=== PATIENT | female | born 1945 | race Caucasian/White ===

== ENCOUNTER 2021-12-14 14:41 | Inpatient (IN) ==
[2021-12-14 15:48] LABS: Basophils % 0.4 %; Eosinophils # 0.3 K/mcL (0.0-0.6); Eosinophils % 4.5 %; Hematocrit 41.5 % (35.3-44.9); Hemoglobin 13.2 g/dL (11.5-15.4); Immature Granulocytes % 0.3 % (0-4); Lymphocytes # 1.6 K/mcL (0.6-4.6); Lymphocytes % 22.4 %; Mean Corpuscular HGB Conc 31.8 g/dL (31.6-35.5); Mean Corpuscular Hemoglobin 28.8 pg (28.0-33.3); Mean Corpuscular Volume 90.6 fL (83.0-100.0); Mean Platelet Volume 10.6 fL (9.4-12.4); Monocytes # 0.3 K/mcL (0.0-1.3); Monocytes % 4.6 %; Neutrophils # 4.8 K/mcL (1.6-8.9); Platelet Count 223 K/mcL (140-400); Red Blood Count 4.58 M/mcL (3.82-4.97); Red Cell Distribution Width 14.1 % (11.5-14.5); Segmented Neutrophils % 67.8 %; White Blood Count 7.1 K/mcL (4.3-11.1)
[2021-12-14 16:07] LABS: BUN/Creatinine Ratio 18 (6-26); Blood Urea Nitrogen 19 mg/dL (8-23); Calcium 9.4 mg/dL (8.6-10.3); Carbon Dioxide 28 mEq/L (23-29); Chloride 102 mEq/L (98-107); Glucose 194 mg/dL (70-105); Osmolality,Calculated 292 (280-300); Potassium 3.9 mEq/L (3.5-5.1); Sodium 137 mEq/L (136-145)
[2021-12-14 21:03] LABS: Magnesium 1.8 mg/dL (1.6-2.6); Phosphorous 4.2 mg/dL (2.7-4.5); Troponin I < 0.03 ng/mL (< 0.04)
[2021-12-14 21:18] LABS: Thyroid Stimulating Hormone 0.886 mcIU/mL (0.340-5.600)
[2021-12-14 22:46] LABS: Amorphous Sediment,Urine Few per hpf (None-Few); Bilirubin,Urine Negative (Negative); Blood,Urine Negative (Negative); Clarity,Urine Clear (Clear); Color,Urine Light-Yellow (Yellow); Glucose,Urine (UA) >=1000 mg/dL (Normal); Ketones,Urine Negative (Negative); Leukocyte Esterase,Urine Negative (Negative); Mucus,Urine Few per lpf (None-Few); Nitrite,Urine Negative (Negative); Protein,Urine Negative (Neg-Trace); RBC,Urine 0-3 per hpf (0-3); Specific Gravity,Urine 1.015 (1.010-1.025); Squamous Epithelial Cell,Urine Few per hpf (None-Few); Urobilinogen,Urine Normal (Normal); WBC,Urine 0-3 per hpf (0-3)
[2021-12-15] MEDS ORDERED: Naloxone 0.4 MG/ML INJ IVP PRN (01:57)
[2021-12-15] MEDS ORDERED: Ondansetron 4 MG/2 ML VIAL IVP PRN (01:57)
[2021-12-15] MEDS ORDERED: Acetaminophen 325 MG TABLET PO PRN (03:42)
[2021-12-15] MEDS ORDERED: Dextrose Gel 15 GM/37.5 ML TUBE PO PRN ×2 (03:44)
[2021-12-15] MEDS ORDERED: D5% in Water 1,000 ML IVC PRN (03:44)
[2021-12-15] MEDS ORDERED: *HR* Dextrose 50 % in Water (Syg) 50 ML SYRINGE IVP PRN (03:44)
[2021-12-15 03:45] LABS: Basophils % 0.4 %; Eosinophils # 0.4 K/mcL (0.0-0.6); Eosinophils % 4.6 %; Hemoglobin 12.6 g/dL (11.5-15.4); Immature Granulocytes % 0.3 % (0-4); Lymphocytes # 2.7 K/mcL (0.6-4.6); Lymphocytes % 29.5 %; Mean Corpuscular HGB Conc 32.3 g/dL (31.6-35.5); Mean Corpuscular Hemoglobin 29.2 pg (28.0-33.3); Mean Corpuscular Volume 90.3 fL (83.0-100.0); Mean Platelet Volume 10.4 fL (9.4-12.4); Monocytes # 0.6 K/mcL (0.0-1.3); Neutrophils # 5.3 K/mcL (1.6-8.9); Platelet Count 191 K/mcL (140-400); Red Blood Count 4.32 M/mcL (3.82-4.97); Segmented Neutrophils % 58.2 %; White Blood Count 9.1 K/mcL (4.3-11.1)
[2021-12-15 03:53] LABS: INR 1.2; Prothrombin Time 13.1 Seconds (9.4-12.1)
[2021-12-15 04:08] LABS: BUN/Creatinine Ratio 21 (6-26); Blood Urea Nitrogen 21 mg/dL (8-23); Calcium 9.3 mg/dL (8.6-10.3); Carbon Dioxide 28 mEq/L (23-29); Chloride 101 mEq/L (98-107); Chol/HDL Ratio 2.2 (0-4.9); Cholesterol 110 mg/dL (< 200); Glucose 118 mg/dL (70-105); HDL Cholesterol 51 mg/dL (40-59); LDL Cholesterol,Calculated 27 mg/dL (< 100); Magnesium 1.7 mg/dL (1.6-2.6); Osmolality,Calculated 290 (280-300); Phosphorous 4.2 mg/dL (2.7-4.5); Potassium 3.5 mEq/L (3.5-5.1); Sodium 138 mEq/L (136-145); Triglycerides 161 mg/dL (< 150); Troponin I < 0.03 ng/mL (< 0.04)
[2021-12-15] MEDS ORDERED: Melatonin 3 MG TABLET PO PRN (05:00)
[2021-12-15 05:09] LABS: Influenza A PCR Negative (Negative); Influenza B PCR Negative (Negative); Resp. Syncytial Virus PCR Negative (Negative)
[2021-12-15 05:10] LABS: SARS-CoV-2 by PCR (In House) Negative (Negative)
[2021-12-15] MEDS: Insulin LISPRO 300 UNITS/3 ML VIAL SUBQ SCH ×5 (05:16→21:47)
[2021-12-15] MEDS: Metoprolol XL (24 HR) Succ 50 MG TAB.ER.24H PO SCH (08:49)
[2021-12-15] MEDS: hydroCHLOROthiazide 25 MG TABLET PO SCH (08:49)
[2021-12-15] MEDS ORDERED: amLODIPine 5 MG TABLET PO SCH (09:00)
[2021-12-15 11:06] LABS: Estimated Average Glucose 186 mg/dl; Hemoglobin A1C 8.1 %
[2021-12-15 11:24] LABS: % Iron Saturation 14 % (15-50); Iron 47 mcg/dL (50-170); Transferrin 239 mg/dL (203-362)
[2021-12-15 11:39] LABS: Ferritin 135 ng/mL (10-120)
[2021-12-15 11:45] LABS: Folate 14.7 ng/mL (3.0-16.0)
[2021-12-15] MEDS: rOPINIRole 0.25 MG TABLET PO SCH (21:44)
[2021-12-16] MEDS: Insulin LISPRO 300 UNITS/3 ML VIAL SUBQ SCH ×4 (07:41→20:34)
[2021-12-16] MEDS: hydroCHLOROthiazide 25 MG TABLET PO SCH (08:31)
[2021-12-16] MEDS: Metoprolol XL (24 HR) Succ 50 MG TAB.ER.24H PO SCH (08:32)
[2021-12-16] MEDS: rOPINIRole 0.25 MG TABLET PO SCH (20:34)
[2021-12-17] MEDS: Insulin LISPRO 300 UNITS/3 ML VIAL SUBQ SCH ×4 (06:57→21:55)
[2021-12-17] MEDS: Metoprolol XL (24 HR) Succ 50 MG TAB.ER.24H PO SCH (07:24)
[2021-12-17] MEDS: hydroCHLOROthiazide 25 MG TABLET PO SCH (07:25)
[2021-12-17] MEDS ORDERED: *HR* FentaNYL (PF) 100 MCG/2 ML VIAL ONE (13:26)
[2021-12-17] MEDS ORDERED: *HR* Midazolam HCl 2 MG/2 ML VIAL ONE (13:26)
[2021-12-17] MEDS ORDERED: Nitroglycerin 1,000 MCG/5 ML VIAL IV ONE (13:27)
[2021-12-17] MEDS ORDERED: *HR* Heparin 10,000 UNIT/10 ML VIAL ONE ×2 (13:27→13:55)
[2021-12-17] MEDS ORDERED: Heparin 1,000 UNITS/500 mL 500 ML ONE (13:27)
[2021-12-17] MEDS ORDERED: Iopamidol - 370 200 ML INFUS..BTL ONE (13:27)
[2021-12-17] MEDS ORDERED: 0.9 % Sodium Chloride 1,000 ML ONE (13:27)
[2021-12-17] MEDS ORDERED: Iopamidol - 370 500 ML MLS IVP ONE (13:58)
[2021-12-17] MEDS: rOPINIRole 0.25 MG TABLET PO SCH (20:04)
[2021-12-18] MEDS: hydroCHLOROthiazide 25 MG TABLET PO SCH (07:39)
[2021-12-18] MEDS: Metoprolol XL (24 HR) Succ 50 MG TAB.ER.24H PO SCH (07:39)
[2021-12-18] MEDS: Insulin LISPRO 300 UNITS/3 ML VIAL SUBQ SCH ×4 (07:40→20:55)
[2021-12-18] MEDS: Aspirin Enteric Coated 81 MG Tablet PO SCH (08:39)
[2021-12-18] MEDS: rOPINIRole 0.25 MG TABLET PO SCH (20:55)
[2021-12-19 07:41] VITALS: BP 124/72; PULSE 68; TEMP 97.7; O2SAT 94
[2021-12-19] MEDS: Insulin LISPRO 300 UNITS/3 ML VIAL SUBQ SCH ×2 (08:11→11:55)
[2021-12-19] MEDS: hydroCHLOROthiazide 25 MG TABLET PO SCH (08:12)
[2021-12-19] MEDS: Aspirin Enteric Coated 81 MG Tablet PO SCH (08:12)
[2021-12-19] MEDS ORDERED: Metoprolol XL (24 HR) Succ 50 MG TAB.ER.24H PO SCH ×2 (09:00)
== END 2021-12-19 12:10 | disposition home or self-care (01) | DRG 247 ==
LOC: EMEROOARM 14:41 → 3BNU 14:41 → SUATTDRO 12-15 01:53 → 3BNU 12-15 02:21 → SUATTDRO 12-18 19:32
PROVIDERS: ADMIT Internal Medicine; ATTEND Registered Nurse

== ENCOUNTER 2022-01-08 06:33 | Inpatient (IN) ==
[~2022-01-08 06:33] MED LIST: CeFAZolin Syr 2,000MG/20 ML 2,000 MG/20 ML SYRINGE IVPB ONE; NiCARdipine 2.5 MG/10 ML Syringe IVPB ONE
[2022-01-08] MEDS ORDERED: Protamine Sulfate 50 MG/5 ML VIAL IVP ONE (07:07)
[2022-01-08] MEDS ORDERED: 0.9 % Sodium Chloride 1,000 ML ONE ×2 (07:08→07:09)
[2022-01-08] MEDS ORDERED: *HR* Heparin 10,000 UNIT/10 ML VIAL ONE (07:08)
[2022-01-08] MEDS ORDERED: Heparin 1,000 UNITS/500 mL 1,500 ML ONE (07:08)
[2022-01-08] MEDS ORDERED: Iopamidol - 370 200 ML INFUS..BTL ONE (07:11)
[2022-01-08] MEDS ORDERED: Ondansetron 4 MG/2 ML VIAL IVP PRN (07:12)
[2022-01-08] MEDS ORDERED: Albuterol 2.5 MG/3 ML NEBULIZER IH PRN (07:12)
[2022-01-08] MEDS ORDERED: *HR* Metoprolol 5 MG/5 ML VIAL IVP PRN (07:12)
[2022-01-08] MEDS ORDERED: *HR* FentaNYL (PF) 100 MCG/2 ML VIAL IVP PRN (07:12)
[2022-01-08] MEDS ORDERED: Acetaminophen IV 1,000 MG/100 ML BAG IVPB PRN (07:12)
[2022-01-08] MEDS ORDERED: Vancomycin 1,000 MG VIAL ONE (07:15)
[2022-01-08] MEDS ORDERED: D5% in Water 100 ML ONE (07:16)
[2022-01-08] MEDS ORDERED: 0.9 % Sodium Chloride 2,000 ML ONE (07:16)
[2022-01-08] MEDS ORDERED: 0.9 % Sodium Chloride 250 ML ONE (07:16)
[2022-01-08] MEDS ORDERED: *HR* FentaNYL (PF) 100 MCG/2 ML VIAL ONE (07:34)
[2022-01-08] MEDS ORDERED: *HR* Midazolam HCl 2 MG/2 ML VIAL ONE (07:34)
[2022-01-08] MEDS ORDERED: Heparin 15,000 UNIT in 0.9 % Sodium Chloride 500 ML IR ONE (07:45)
[2022-01-08] MEDS ORDERED: Norepinephrine 4 MG in 0.9 % Sodium Chloride 250 ML IVC PRN (07:45)
[2022-01-08] MEDS ORDERED: Buckersberg's Blood Cardioplegia PF ONE (08:00)
[2022-01-08] MEDS ORDERED: del Nido Cardioplegia Solution PF ONE ×2 (08:00)
[2022-01-08] MEDS ORDERED: Sennosides 8.6 MG TABLET PO PRN (09:33)
[2022-01-08] MEDS ORDERED: *HR* Promethazine 25 MG/ML VIAL IM PRN (09:33)
[2022-01-08] MEDS ORDERED: *HR* Dextrose 50 % in Water (Syg) 50 ML SYRINGE IVP PRN ×2 (09:33→10:45)
[2022-01-08] MEDS ORDERED: Ipratropium/Albuterol Neb 3 ML IH PRN (09:33)
[2022-01-08] MEDS ORDERED: Naloxone 0.4 MG/ML INJ IVP PRN (09:33)
[2022-01-08] MEDS ORDERED: Calcium Gluconate 1gm/50mL 1 GM/50 ML BAG IVPB PRN (09:33)
[2022-01-08] MEDS ORDERED: Albumin Human 5% 12.5 GM/250 ML IV.SOLN IVPB PRN (09:33)
[2022-01-08] MEDS ORDERED: Insulin Regular, Human 100 UNIT/ML IV PRN (09:33)
[2022-01-08] MEDS ORDERED: Potassium Chloride 40 MEQ/200 ML BAG IVPB PRN (09:33)
[2022-01-08] MEDS: niCARdipine 20 MG/200 ML MLS IVC SCH ×2 (10:06→20:19)
[2022-01-08] MEDS ORDERED: Dextrose Gel 15 GM/37.5 ML TUBE PO PRN ×2 (10:45)
[2022-01-08] MEDS ORDERED: D5% in Water 1,000 ML IVC PRN (10:45)
[2022-01-08] MEDS ORDERED: *HR* Phenylephrine 10 MG/ML VIAL IVC ONE (12:21)
[2022-01-08] MEDS ORDERED: Ondansetron 4 MG/2 ML VIAL IVP ONE (12:21)
[2022-01-08] MEDS ORDERED: *HR* Etomidate 20 MG/10 ML AMPUL IVP ONE (12:21)
[2022-01-08] MEDS ORDERED: *HR* Propofol 200 MG/20 ML VIAL IVP ONE (12:21)
[2022-01-08] MEDS ORDERED: *HR* Rocuronium Bromide 50 MG/5 ML VIAL IVP ONE (12:21)
[2022-01-08] MEDS ORDERED: Lidocaine -MPF 2% 5 ML VIAL SQ ONE (12:21)
[2022-01-08] MEDS ORDERED: *HR* HYDROcodone/Acet 5/325 mg TABLET PO PRN (17:03)
[2022-01-08] MEDS ORDERED: Melatonin 3 MG TABLET PO PRN (17:03)
[2022-01-08] MEDS: Chlorhexidine Rinse 15 ML MOUTHWASH MM SCH (20:07)
[2022-01-08] MEDS ORDERED: Furosemide 20 MG/2 ML VIAL IVP SCH (21:00)
[2022-01-08] MEDS ORDERED: rOPINIRole 0.25 MG TABLET PO SCH ×2 (21:00)
[2022-01-08] MEDS ORDERED: NON-FORMULARY MEDICATION 1 EACH EACH (Pantoprazole Sodium [Protonix] 40 MG Tablet.Dr) PO SCH (21:00)
[2022-01-09] MEDS: niCARdipine 20 MG/200 ML MLS IVC SCH ×2 (05:28→08:21)
[2022-01-09 06:47] LABS: Basophils % 0.3 %; Eosinophils # 0.1 K/mcL (0.0-0.6); Eosinophils % 0.4 %; Hematocrit 34.9 % (35.3-44.9); Hemoglobin 11.3 g/dL (11.5-15.4); Immature Granulocytes % 0.4 % (0-4); Lymphocytes # 1.8 K/mcL (0.6-4.6); Lymphocytes % 15.8 %; Mean Corpuscular HGB Conc 32.4 g/dL (31.6-35.5); Mean Corpuscular Hemoglobin 29.3 pg (28.0-33.3); Mean Corpuscular Volume 90.4 fL (83.0-100.0); Mean Platelet Volume 9.8 fL (9.4-12.4); Monocytes % 8.8 %; Neutrophils # 8.3 K/mcL (1.6-8.9); Platelet Count 167 K/mcL (140-400); Red Blood Count 3.86 M/mcL (3.82-4.97); Red Cell Distribution Width 14.9 % (11.5-14.5); Segmented Neutrophils % 74.3 %; White Blood Count 11.2 K/mcL (4.3-11.1)
[2022-01-09 06:58] LABS: INR 1.1; Prothrombin Time 12.3 Seconds (9.4-12.1)
[2022-01-09 07:00] LABS: Activated Partial Thrombo Time 30.3 Seconds (26.0-36.0)
[2022-01-09 07:08] LABS: Magnesium 1.7 mg/dL (1.6-2.6); Potassium 4.2 mEq/L (3.5-5.1)
[2022-01-09] MEDS: Chlorhexidine Rinse 15 ML MOUTHWASH MM SCH (08:20)
[2022-01-09] MEDS ORDERED: Aspirin Enteric Coated 81 MG Tablet PO SCH ×2 (09:00)
[2022-01-09] MEDS ORDERED: Metoprolol XL (24 HR) Succ 25 MG TAB.ER.24H PO SCH (09:00)
[2022-01-09] MEDS ORDERED: BuPROPion SR (12 HR) 150 MG TABLET PO SCH ×2 (09:00)
[2022-01-09 11:14] VITALS: BP 139/62; PULSE 90; TEMP 98.8; O2SAT 97
== END 2022-01-09 12:22 | disposition home or self-care (01) | DRG 267 ==
LOC: INVDIALAB 06:33 → ICNU 09:31 → 2NNU 20:25
PROVIDERS: ADMIT Thoracic Surgery (Cardiothoracic Vascular Surgery); ATTEND Thoracic Surgery (Cardiothoracic Vascular Surgery)